=== PATIENT | female | born 1955 | race Caucasian/White ===

== ENCOUNTER 2016-12-25 00:09 | Emergency (ER) | payer OTHER ==
[~2016-12-25] VITALS: Ht 170.2 cm; Wt 101.0 kg
[~2016-12-25 00:09] MED LIST: ABAT1INJ SC; AMLO5TAB13 OR; AZAT50 PO; B12-1CHW OR; BACL10TA; BACL10TA PO; BAYE325T3 OR; DIPH1TAB36 PO; DIPH2%T PO; FISH300C2 PO; LISI-360 PO; LORT5TAB PO; METO50TA PO; NAPR220T9 PO; POTA80TA PO; SIMV40TA PO
[2016-12-25 00:20] VITALS: BP 162/89; PULSE 83; RESP 20; TEMP 98.3; O2SAT 96
[2016-12-25 01:03] LABS: BLOOD, URINE LARGE (NEG); GLUCOSE,URINE NEG (NEG); KETONE, URINE TRACE mg/dL (NEG); NITRITE,URINE NEG (NEG)
[2016-12-25 01:13] LABS: METHOD OF COLLECTION CLEAN CATCH; URINE COLOR BROWN (YELLW/STRAW)
[2016-12-25 01:27] LABS: RBC, URINE INNUM /hpf (0-3)
[2016-12-25 01:28] LABS: BACTERIA, URINE FEW /hpf; CALCIUM OXALATE CRYSTALS,URINE MOD /hpf; COMMENT (UR) CULT NOT INDICATED; CULTURE IF INDICATED CULT NOT INDICATED; SQUAMOUS EPITHELIAL CELL URINE 0-3 /hpf (0-5)
[2016-12-25] MEDS ORDERED: SODIUM CHLOR 0.9% 1000 ML INJ 1,000 ML IV ONE (01:40)
[2016-12-25] MEDS ORDERED: KETOROLAC TROMETHAMINE 30 MG/ML (IVP) VIAL IVP ONE (01:45)
[2016-12-25] MEDS ORDERED: ONDANSETRON HCL 4 MG/2 ML VIAL IVP ONE (01:45)
[2016-12-25] MEDS ORDERED: SODIUM CHLORIDE 0.9% FLUSH 10 ML FLUSH IVF PRN (01:45)
--- NOTE | 2016-12-25 01:48 | PD ---
HPI Chief Complaint: Abdominal Pain Time Seen by Provider: 01:40 Travel History International Travel<30 days: No Contact w/Intl Traveler<30days: No Traveled to known affect area: No History of Present Illness HPI The patient is a 61-year-old female that complains of right flank and right UVJ discomfort for 2 days. The pain is sharp. She does not have a history of kidney stones. She denies any fever or vomiting but does have some nausea. She denies any dysuria, frequency or urgency. She has had an appendectomy. PFSH Past Medical History Arthritis: Yes Asthma: No Blood Disorders: No Anxiety: No Depression: No Heart Rhythm Problems: No Cancer: No Cardiovascular Problems: Yes (CABG, FAILED STENTS) High Cholesterol: Yes Chemotherapy: No Chest Pain: Yes Congestive Heart Failure: No COPD: No Diabetes: No Genitourinary: No Immune Disorder: No Musculoskeletal: Yes (ARTHRITIS) Neurologic: No Psychiatric: No Reproductive: No Respiratory: No Radiation Therapy: No Sleep Apnea: No Thyroid Disease: No Menopausal: Yes : 2 Para: 2 Tubal Ligation: Yes Past Surgical History Appendectomy: Yes Body Medical Devices: STENTS Cardiac Surgery: Yes Section: Yes (1976) Coronary Artery Bypass Graft: Yes Tonsillectomy: Yes Social History Alcohol Use: Yes (WINE OCCASIONALLY) Tobacco Use: No Substance Use: No Allergies-Medications (Allergen,Severity, Reaction): Coded Allergies: Plavix (Verified Allergy, Unknown, 12/25/16) Reported Meds & Prescriptions Reported Meds & Active Scripts Active Reported Sulfasalazine 500 Mg Tab 500 Mg PO DAILY Lisinopril 10 Mg Tab 10 Mg PO DAILY Metoprolol Succinate ER 24 HR (Metoprolol Succinate) 50 Mg Tab 50 Mg PO DAILY Josefina Aspirin (Aspirin) 325 Mg Tab 325 Mg PO DAILY Metformin (Metformin HCl) 500 Mg Tab 500 Mg PO BIDPC With meals Review of Systems Except as stated in HPI: all other systems reviewed are Neg Physical Exam Narrative GENERAL: The patient is alert, oriented 3 in moderate apparent distress with her right UVJ area pain. Her vital signs show blood pressure 162/89 but are otherwise normal. SKIN: Warm and dry. HEAD: Atraumatic. Normocephalic. EYES: Pupils equal and round. No scleral icterus. No injection or drainage. ENT: No nasal bleeding or discharge. Mucous membranes pink and moist. NECK: Trachea midline. No JVD. CARDIOVASCULAR: Regular rate and rhythm. No murmur appreciated. RESPIRATORY: No accessory muscle use. Clear to auscultation. Breath sounds equal bilaterally. GASTROINTESTINAL: Abdomen soft, with tenderness to direct palpation in the right UVJ area, nondistended. Hepatic and splenic margins not palpable. No guarding or rebound is present. MUSCULOSKELETAL: No obvious deformities. No clubbing. No cyanosis. No edema. NEUROLOGICAL: Awake and alert. No obvious cranial nerve deficits. Motor grossly within normal limits. Normal speech. PSYCHIATRIC: Appropriate mood and affect; insight and judgment normal. Data Data Last Documented VS Vital Signs Date Time Temp Pulse Resp B/P Pulse Ox O2 Delivery O2 Flow Rate FiO2 12/25/16 02:21 20 12/25/16 00:20 98.3 83 162/89 96 Orders Urinalysis - C+S If Indicated (12/25/16 00:37) Complete Blood Count With Diff (12/25/16 01:40) Basic Metabolic Panel (Bmp) (12/25/16 01:40) Ct Abd/Pel W/O Iv Contrast (12/25/16 01:40) Ecg Monitoring (12/25/16 01:40) Iv Access Insert/Monitor (12/25/16 01:40) Ketorolac Inj (Toradol Inj) (12/25/16 01:45) Ondansetron Inj (Zofran Inj) (12/25/16 01:45) Sodium Chloride 0.9% Flush (Ns Flush) (12/25/16 01:45) Sodium Chlor 0.9% 1000 Ml Inj (Ns 1000 M (12/25/16 01:40) Tamsulosin (Flomax) (12/25/16 03:00) Labs Laboratory Tests Test 12/25/16 12/25/16 00:21 02:05 Urine Collection Type CLEAN CATCH Urine Color BROWN Urine Turbidity CLOUDY Urine pH 5.0 Urine Specific [place] 1.034 Urine Protein 100 mg/dL Urine Glucose (UA) NEG mg/dL Urine Ketones TRACE mg/dL Urine Occult Blood LARGE Urine Nitrite NEG Urine Bilirubin NEG Urine Leukocyte Esterase TRACE Urine RBC INNUM /hpf Urine WBC 3-5 /hpf Urine Squamous Epithelial 0-3 /hpf Cells Urine Calcium Oxalate Crystals MOD /hpf Urine Amorphous Sediment MOD Urine Bacteria FEW /hpf Urine Hyaline Casts 3-5 /lpf Microscopic Urinalysis Comment CULT NOT INDICATED White Blood Count 11.5 TH/MM3 Red Blood Count 4.32 MIL/MM3 Hemoglobin 14.1 GM/DL Hematocrit 42.4 % Mean Corpuscular Volume 98.1 FL Mean Corpuscular Hemoglobin 32.7 PG Mean Corpuscular Hemoglobin 33.4 % Concent Red Cell Distribution Width 13.1 % Platelet Count 227 TH/MM3 Mean Platelet Volume 7.9 FL Neutrophils (%) (Auto) 75.5 % Lymphocytes (%) (Auto) 12.5 % Monocytes (%) (Auto) 9.6 % Eosinophils (%) (Auto) 2.0 % Basophils (%) (Auto) 0.4 % Neutrophils # (Auto) 8.8 TH/MM3 Lymphocytes # (Auto) 1.4 TH/MM3 Monocytes # (Auto) 1.1 TH/MM3 Eosinophils # (Auto) 0.2 TH/MM3 Basophils # (Auto) 0.0 TH/MM3 CBC Comment DIFF FINAL Differential Comment Sodium Level 142 MEQ/L Potassium Level 3.9 MEQ/L Chloride Level 104 MEQ/L Carbon Dioxide Level 27.5 MEQ/L Anion Gap 11 MEQ/L Blood Urea Nitrogen 23 MG/DL Creatinine 1.10 MG/DL Estimat Glomerular Filtration 50 ML/MIN Rate Random Glucose 110 MG/DL Calcium Level 9.4 MG/DL MDM Medical Decision Making Medical Screen Exam Complete: Yes Emergency Medical Condition: Yes Medical Record Reviewed: Yes Interpretation(s) The CT abdomen/pelvis without IV contrast shows a 6.3 mm calculus in the right UPJ with moderate right hydronephrosis and mild perinephric stranding. Also noted incidentally are atherosclerosis and minimal diverticulosis. The CBC shows a white count of 11,500 with 76% neutrophils but is otherwise unremarkable. The basic metabolic profile shows a BUN of 23, creatinine 1.1, GFR of 58 but is otherwise unremarkable. The urine shows brown color, cloudy turbidity, specific gravity 1.034 with trace ketones, large blood, trace leukocyte esterase, numerable red cells and moderate calcium oxalate crystals in 3-5 hyalin casts and culture is not indicated. Differential Diagnosis Cystitis, pyelonephritis, right ureteral stone, colitis Narrative Course The patient has a fairly large right ureteral stone. It is now 0-53 and the patient has no pain. Plan: The patient will be given prescriptions for Motrin, Flomax, Zofran and Percocet 5. She does not like taking narcotics and she may not wish to fill the Percocet 5. She needs to follow-up with urology and she should call later on today to set up an appointment. Diagnosis Primary Impression: Right ureteral calculus Additional Instructions: The Percocet as the medications that may make you nauseated, it is a narcotic. Phenergan is prescribed for nausea. Flomax opens up the ureters which are the tubes between your kidney and bladder. The 600 mg Motrin tablets are taken regularly, 1 tablet 3 times daily. Med/Other Pt SpecificInfo: Prescription(s) given Scripts Oxycodone-Acetaminophen (Percocet)5-325 mg Tab1 Tab PO Q6H PRN (PAIN) #30 TAB Ref 0 Prov:Jose Briceño MD 12/25/16 Ibuprofen 600 Mg [id number] Mg PO TID #45 TAB Ref 0 Prov:Jose Briceño MD 12/25/16 Tamsulosin (Flomax)0.4 Mg Cap0.4 Mg PO HS #30 CAP Ref 0 Prov:Jose Briceño MD 12/25/16 Ondansetron (Zofran)4 Mg Tab4 Mg PO Q6HR PRN (NAUSEA OR VOMITING) #30 TAB Ref 0 Prov:Jose Briceño MD 12/25/16 Disposition: DISCHARGE HOME Condition: Stable Jose Briceño MD Dec 25, 2016 01:48
[2016-12-25 02:14] LABS: AUTOMATED NEUTROPHIL # 8.8 TH/MM3 (1.8-7.7); BASOPHIL % 0.4 % (0.0-2.0); EOSINOPHIL # 0.2 TH/MM3 (0-0.4); HEMATOCRIT 42.4 % (35.0-46.0); LYMPH % 12.5 % (9.0-44.0); LYMPHOCYTE # 1.4 TH/MM3 (1.0-4.8); MEAN CELL VOLUME 98.1 FL (80.0-100.0); MEAN CORPUSCULAR HEMOGLOBIN 32.7 PG (27.0-34.0); MEAN CORPUSCULAR HGB CONC 33.4 % (32.0-36.0); MONO % 9.6 % (0.0-8.0); NEUT % 75.5 % (16.0-70.0); PLATELET COUNT 227 TH/MM3 (150-450); RED BLOOD COUNT 4.32 MIL/MM3 (4.00-5.30); RED CELL DISTRIBUTION WIDTH 13.1 % (11.6-17.2); WHITE BLOOD COUNT 11.5 TH/MM3 (4.0-11.0)
[2016-12-25 02:15] VITALS: BP 128/67; PULSE 65; RESP 20; O2SAT 95
[2016-12-25 02:23] LABS: HEMO FLAGS DIFF FINAL
[2016-12-25 02:27] LABS: POTASSIUM 3.9 MEQ/L (3.5-5.1)
[2016-12-25 02:30] LABS: BICARBONATE 27.5 MEQ/L (21.0-32.0)
[2016-12-25] MEDS ORDERED: LISI10TA3 PO (02:32)
[2016-12-25] MEDS ORDERED: SULF500T3 PO (02:32)
[2016-12-25] MEDS ORDERED: METF500T PO (02:32)
[2016-12-25] MEDS ORDERED: BAYE325T PO (02:32)
[2016-12-25] MEDS ORDERED: METO50TA11 PO (02:32)
--- NOTE | 2016-12-25 02:47 | RADHPO ---
EXAM DATE/TIME: 12/25/2016 02:18 [facility] COMPARISON: No previous studies available for comparison. INDICATIONS : Left lower flank pain for two days. ORAL CONTRAST: No oral contrast ingested. RADIATION DOSE: 24.42 CTDIvol (mGy) MEDICAL HISTORY : Hypertension. SURGICAL HISTORY : Appendectomy. section.Tubal ligation. ENCOUNTER: Initial ACUITY: 2 days PAIN SCALE: 8/10 LOCATION: Left flank TECHNIQUE: Volumetric scanning of the abdomen and pelvis was performed. Using automated exposure control and ad justment of the mA and/or kV according to patient size, radiation dose was kept as low as reasonably achievable to obtain optimal diagnostic quality images. FINDINGS: Early degenerative changes of the spine. Liver, gallbladder, spleen, pancreas, adrenal glands, left k idney unremarkable. There is moderate hydronephrosis and mild perinephric stranding of the right kidn ey. There is proximal ureteral dilatation secondary to a calculus measuring 6.3 mm on image 91 of the proximal right ureter. No other calculi are seen. Urinary bladder, uterus and ovaries are remarkable . There is diverticulosis without diverticulitis. No adenopathy or aneurysm. Atherosclerotic calcific ations are seen of the aorta and iliac vessels. The lung bases are clear. CONCLUSION: 1. Right UPJ calculus with moderate right hydronephrosis and mild perinephric stranding. 2. Atherosclerosis. 3. Minimal diverticulosis. Gilbert Estrada MD on December 25, 2016 at 2:43 Board Certified Radiologist. This report was verified electronically.
[2016-12-25] MEDS ORDERED: TAMSULOSIN HCL 0.4 MG CAP PO ONE (03:00)
[2016-12-25] MEDS ORDERED: ZOFR4TAB PO (03:02)
[2016-12-25] MEDS ORDERED: PERC5TAB12 PO (03:02)
[2016-12-25] MEDS ORDERED: IBUP-232 PO (03:02)
[2016-12-25] MEDS ORDERED: TAMS5CAP PO (03:02)
[2016-12-25 03:27] VITALS: BP 123/80
[2016-12-25 03:33] VITALS: BP 123/59; PULSE 68; RESP 20; O2SAT 96
== END 2016-12-25 03:40 | disposition home or self-care (01) ==
LOC: PHED 00:09
DX: N20.1 Calculus of ureter (principal); R11.0 Nausea; E78.00 Pure hypercholesterolemia, unspecified; Z95.1 Presence of aortocoronary bypass graft
CPT/HCPCS: 74176; 80048; 81001; 85025; 96361; 96374; 96375; 99284; J1885; J2405; J7030